=== PATIENT | male | born 1945 | race Caucasian/White ===

== ENCOUNTER → 2016-12-06 | Outpatient (CLI) | payer MEDICARE | END | disposition home or self-care (01) | LOC: PCVCCLINIC 10:00 | PROVIDERS: ATTEND Internal Medicine | DX: I25.10 Atherosclerotic heart disease of native coronary artery without angina pectoris (principal); I10 Essential (primary) hypertension; I65.23 Occlusion and stenosis of bilateral carotid arteries; E78.5 Hyperlipidemia, unspecified; E11.9 Type 2 diabetes mellitus without complications | CPT/HCPCS: 93005; G0463 ==

== ENCOUNTER → 2017-05-17 | Outpatient (CLI) | payer MEDICARE | END | disposition home or self-care (01) | LOC: PCVCCLINIC 10:26 | PROVIDERS: ATTEND Internal Medicine | DX: I25.10 Atherosclerotic heart disease of native coronary artery without angina pectoris (principal); I42.9 Cardiomyopathy, unspecified; I65.23 Occlusion and stenosis of bilateral carotid arteries; I10 Essential (primary) hypertension; E78.2 Mixed hyperlipidemia; E11.9 Type 2 diabetes mellitus without complications; E78.00 Pure hypercholesterolemia, unspecified; Z79.4 Long term (current) use of insulin; Z79.899 Other long term (current) drug therapy; Z79.82 Long term (current) use of aspirin; Z88.8 Allergy status to other drugs, medicaments and biological substances; Z95.5 Presence of coronary angioplasty implant and graft; F17.210 Nicotine dependence, cigarettes, uncomplicated | CPT/HCPCS: 93005; G0463 ==

== ENCOUNTER → 2017-12-26 | Outpatient (CLI) | payer MEDICARE | END | disposition home or self-care (01) | LOC: PCVCIMAG 08:10 | DX: I65.23 Occlusion and stenosis of bilateral carotid arteries (principal); I25.10 Atherosclerotic heart disease of native coronary artery without angina pectoris; I42.9 Cardiomyopathy, unspecified; I10 Essential (primary) hypertension; E78.2 Mixed hyperlipidemia; E11.9 Type 2 diabetes mellitus without complications; F17.210 Nicotine dependence, cigarettes, uncomplicated; Z79.4 Long term (current) use of insulin; Z79.82 Long term (current) use of aspirin; Z79.899 Other long term (current) drug therapy | CPT/HCPCS: 93005; 93306; 93880; G0463 ==

== ENCOUNTER → 2018-06-28 | Outpatient (CLI) | payer MEDICARE | END | disposition home or self-care (01) | LOC: PCVCCLINIC 10:15 | PROVIDERS: ATTEND Internal Medicine | DX: I25.10 Atherosclerotic heart disease of native coronary artery without angina pectoris (principal); I42.9 Cardiomyopathy, unspecified; I10 Essential (primary) hypertension; E78.2 Mixed hyperlipidemia; I65.23 Occlusion and stenosis of bilateral carotid arteries; E11.9 Type 2 diabetes mellitus without complications; Z79.4 Long term (current) use of insulin; F17.210 Nicotine dependence, cigarettes, uncomplicated; Z79.82 Long term (current) use of aspirin; Z79.84 Long term (current) use of oral hypoglycemic drugs; Z88.8 Allergy status to other drugs, medicaments and biological substances | CPT/HCPCS: 93005; G0463 ==

== ENCOUNTER → 2019-02-07 | Outpatient (CLI) | payer MEDICARE ==
--- NOTE | 2019-02-07 14:21 | PCVCIMAG ---
APPROVED REPORT Indications Stenosis Risk Factors Hypertension: Hyperlipidemia Diabetes Doppler Spectral Velocity Analysis PSV / EDVPSV / EDV ECA (R) 58 / 15 cm/sECA (L) 59 / 12 cm/s dICA (R) 45 / 23 cm/sdICA (L) 64 / 22 cm/s Jonathan (R) 53 / 21 cm/smICA (L) 69 / 27 cm/s pICA (R) 55 / 15 cm/spICA (L) 38 / 10 cm/s Bulb (R) 47 / 22 cm/sBulb (L) 59 / 18 cm/s dCCA (R) 76 / 25 cm/sdCCA (L) 66 / 22 cm/s mCCA (R) 81 / 21 cm/smCCA (L) 61 / 19 cm/s Vert (R) 30 / 13 cm/sVert (L) 24 / 11 cm/s ICA/CCA 0.72ICA/CCA 1.05 Basic Measurements Blood Pressure: Pulses: Right Left RightLeft Brachial(Sitting) 116/39stFg083/72mmHgTemporal Real Time B-Mode Imaging Vert. (R)AntegradeVert. (L)Antegrade Findings The right carotid bulb has mild plaque. The right proximal internal carotid artery shows no significant stenosis. The right common carotid artery shows no significant stenosis. The right external carotid artery shows no significant stenosis. The left carotid bulb has mild plaque. The left proximal internal carotid artery shows <40% stenosis. The left common carotid artery shows no significant stenosis. The left external carotid artery shows no significant stenosis. Conclusion 1. Right internal carotid artery minimal plaquing. 2. Left internal carotid artery stenosis (<40%) 3. Antegrade vertebral flow
--- NOTE | 2019-02-07 15:46 | PCVCIMAG ---
APPROVED REPORT Study performed: 02/07/2019 13:50:37 EXAM: Comprehensive 2D, Doppler, and color-flow Echocardiogram Patient Location: Echo lab Status: routine BSA: 2.01 HR: 68 bpmBP: 116/72 mmHg Rhythm: NSR Other Information Study Quality: Technically Difficult Risk Factors: Cardiac Risk Factors: HTN, Hyperlipidemia, DM Indications CAD Cardiomyopathy Stents 2D Dimensions IVSd: 10.89 (7-11mm)LVOT Diam: 19.60 (18-24mm) LVDd: 38.40 mm PWd: 9.57 (7-11mm)Ascending Ao: 34.58 (22-36mm) LVDs: 30.92 (25-40mm) Left Atrium: 32.08 (27-40mm) Aortic Root: 34.10 mm LV Single Plane 4CH: 52.44 % Volumes Left Atrial Volume (Systole) Single Plane 4CH: 16.81 mLSingle Plane 2CH: 24.38 mL LA ESV Index: 12.00 mL/m2 Aortic Valve AoV Peak Son.: 1.19 m/s AO Peak Gr.: 5.62 mmHgLVOT Max P.90 mmHg LVOT Max V: 0.85 m/s LOVE Vmax: 2.17 cm2 Mitral Valve E/A Ratio: 80.0 MV Decel. Time: 260.53 ms MV E Max Son.: 0.80 m/s MV A Son.: 0.01 m/s TDI E/Lateral E': 13.33E/Medial E': 10.00 Medial E' Son.: 0.08 m/s Lateral E' Son.: 0.06 m/s Left Ventricle The left ventricle is normal size. There is normal LV segmental wall motion. There is normal left ventricular wall thickness. Left ventricular systolic function is normal. The left ventricular ejection fraction is within the normal range. LVEF is 50-55%. Mild diastolic dysfunction is present (impaired relaxation pattern). Right Ventricle The right ventricle is normal size. The right ventricular systolic function is normal. Atria The left atrium size is normal. The right atrium size is normal. Aortic Valve The aortic valve is normal in structure. No aortic regurgitation is present. There is no aortic valvular stenosis. Mitral Valve The mitral valve is normal in structure. There is no mitral valve regurgitation noted. No evidence of mitral valve stenosis. Tricuspid Valve The tricuspid valve is normal in structure. There is no tricuspid valve regurgitation noted. Pulmonic Valve The pulmonary valve is normal in structure. There is no pulmonic valvular regurgitation. Great Vessels The aortic root is normal in size. IVC is normal in size and collapses >50% with inspiration. Pericardium There is no pericardial effusion. <Conclusion> Left ventricular systolic function is normal. There is normal LV segmental wall motion. LVEF is 50-55%. Mild diastolic dysfunction The aortic valve is normal in structure. No aortic regurgitation or stenosis. The mitral valve is normal in structure. No mitral valve regurgitation Pulmonary artery pressure could not be reliably ascertained. There is no pericardial effusion.
== END | disposition home or self-care (01) ==
LOC: PCVCIMAG 12:50
PROVIDERS: ATTEND Internal Medicine
DX: I65.23 Occlusion and stenosis of bilateral carotid arteries (principal); I25.10 Atherosclerotic heart disease of native coronary artery without angina pectoris; I42.9 Cardiomyopathy, unspecified; I10 Essential (primary) hypertension; E78.2 Mixed hyperlipidemia; E11.9 Type 2 diabetes mellitus without complications; E78.00 Pure hypercholesterolemia, unspecified; F17.210 Nicotine dependence, cigarettes, uncomplicated; Z79.4 Long term (current) use of insulin; Z79.82 Long term (current) use of aspirin; Z79.899 Other long term (current) drug therapy
CPT/HCPCS: 93005; 93306; 93880; G0463

== ENCOUNTER → 2019-08-01 | Outpatient (CLI) | payer MEDICARE | END | disposition home or self-care (01) | LOC: PCVCCLINIC 14:04 | PROVIDERS: ATTEND Internal Medicine | DX: I25.10 Atherosclerotic heart disease of native coronary artery without angina pectoris (principal); I42.9 Cardiomyopathy, unspecified; I10 Essential (primary) hypertension; I65.23 Occlusion and stenosis of bilateral carotid arteries; E78.2 Mixed hyperlipidemia; E11.9 Type 2 diabetes mellitus without complications; F17.210 Nicotine dependence, cigarettes, uncomplicated; Z79.4 Long term (current) use of insulin; Z88.8 Allergy status to other drugs, medicaments and biological substances; E78.00 Pure hypercholesterolemia, unspecified; Z79.82 Long term (current) use of aspirin; Z79.899 Other long term (current) drug therapy | CPT/HCPCS: 93005; G0463 ==